=== PATIENT | male | born 1975 ===

== ENCOUNTER 2023-09-22 12:06 | Emergency (ER) | payer OTHER ==
[~2023-09-22] VITALS: Ht 177.8 cm; Wt 129.0 kg
[2023-09-22 12:47] LABS: BASOPHILS 0.3 % (0-2); EOSINOPHILS 1.5 % (0-6); HEMATOCRIT 38.1 % (35.0-50.0); HEMOGLOBIN 12.6 g/dL (12.0-18.0); LYMPHOCYTES 28.1 % (24-44); MCH 30.2 (27-36); MCHC 32.9 g/dl (30-36); MCV 91.7 fl (81-99); MONOCYTES 4.6 % (0-12); NEUTROPHILS 65.5 % (39-80); PLATELET COUNT 192 K/uL (140-440); RBC 4.15 M/ul (4.3-5.7); RDW 14.1 (10.5-15.0)
[2023-09-22 12:56] LABS: ALBUMIN 2.9 g/dL (3.4-5.0); ALBUMIN/GLOBULIN RATIO 0.69 (1.1-2.4); ANION GAP 13.8 (7-21); BILIRUBIN, TOTAL 0.4 ng/dL (0.2-1.0); BUN/CREATININE RATIO 11.81 (6.0-28.6); CALCIUM 8.6 mg/dL (8.5-10.1); CREATININE, SERUM 1.1 mg/dL (0.70-1.30); POTASSIUM 3.8 mmol/L (3.5-5.1); PROTEIN, TOTAL 7.1 g/dL (6.4-8.2)
[2023-09-22] MEDS ORDERED: HYDROmorphone HCL 1 MG/ML SYR IV ONE ×3 (14:30→19:00)
[2023-09-22] MEDS ORDERED: HYDROmorphone HCL 1 MG/ML SYR ONE (16:58)
[2023-09-22 17:14] VITALS: BP 158/94
== END 2023-09-22 17:00 | disposition short-term general hospital (02) ==
LOC: ED 12:06
PROVIDERS: Emergency Medicine
DX: S32.471A Displaced fracture of medial wall of right acetabulum, initial encounter for closed fracture (principal); S32.461A Displaced associated transverse-posterior fracture of right acetabulum, initial encounter for closed fracture; S32.591A Other specified fracture of right pubis, initial encounter for closed fracture; V89.2XXA Person injured in unspecified motor-vehicle accident, traffic, initial encounter; E11.9 Type 2 diabetes mellitus without complications; Z88.1 Allergy status to other antibiotic agents; Z91.030 Bee allergy status
CPT/HCPCS: 36415; 71260; 73130; 73502; 74177; 80053; 85025; 99285-25; J1170; Q9967